=== PATIENT | male | born 1980 | race Two or more races ===

== ENCOUNTER 2024-07-27 16:47 | Emergency (ER) | payer OTHER ==
[~2024-07-27] VITALS: Ht 177.8 cm; Wt 87.8 kg
[2024-07-27 17:27] LABS: BASOPHILS 0.1 % (0-2); HEMOGLOBIN 19.5 g/dL (12.0-18.0); MCHC 34.8 g/dl (30-36)
[2024-07-27 17:30] LABS: EOSINOPHILS 1.9 % (0-6); HEMATOCRIT 55.9 % (35.0-50.0); LYMPHOCYTES 15.2 % (24-44); MCH 31.2 (27-36); MCV 89.6 fl (81-99); MONOCYTES 13.3 % (0-12); NEUTROPHILS 69.5 % (39-80); PLATELET COUNT 220 K/uL (140-440); RBC 6.24 M/ul (4.3-5.7); RDW 13.4 (10.5-15.0)
[2024-07-27] MEDS ORDERED: SODIUM CHLORIDE 0.9% 1,000 ML IV PRN (17:45)
[2024-07-27] MEDS ORDERED: ondansetron HCL 4 MG/2 ML VIAL IV ONE (17:45)
[2024-07-27 18:17] LABS: ALBUMIN 3.8 g/dL (3.4-5.0); ALBUMIN/GLOBULIN RATIO 1.09 (1.1-2.4); ANION GAP 14.6 (7-21); BILIRUBIN, TOTAL 0.9 ng/dL (0.2-1.0); BUN/CREATININE RATIO 15.44 (6.0-28.6); CREATININE, SERUM 1.23 mg/dL (0.70-1.30); MAGNESIUM 1.7 mg/dL (1.8-2.4); POTASSIUM 4.6 mmol/L (3.5-5.1); PROTEIN, TOTAL 7.3 g/dL (6.4-8.2)
[2024-07-27 18:17] LABS: INFLUENZA B NAA NEGATIVE (NEGATIVE); RESPIRATORY SYNCYTIAL VIR NAA NEGATIVE (NEGATIVE)
[2024-07-27] MEDS ORDERED: MAGNESIUM SULFATE 2 GM/50 ML BAG IV ONE (18:45)
[2024-07-27] MEDS ORDERED: LIDOCAINE & ANTACID 35 ML BTL PO ONE (19:45)
[2024-07-27] MEDS ORDERED: LACTATED RINGER'S 1,000 ML IV ONE (20:30)
[2024-07-27 20:35] LABS: AMPHETAMINES, URINE NEGATIVE (NEGATIVE); BARBITURATES, URINE NEGATIVE (NEGATIVE); BENZODIAZEPINE, URINE NEGATIVE (NEGATIVE); BUPRENORPHINE, URINE NEGATIVE (NEGATIVE); CANNABINOID, URINE NEGATIVE (NEGATIVE); COCAINE, URINE NEGATIVE (NEGATIVE); ECSTASY, URINE NEGATIVE (NEGATIVE); FENTANYL, URINE NEGATIVE (NEGATIVE); METHADONE, URINE NEGATIVE (NEGATIVE); OPIATES, URINE NEGATIVE (NEGATIVE); OXYCODONE, URINE NEGATIVE (NEGATIVE); PHENCYCLIDINE, URINE NEGATIVE (NEGATIVE)
[2024-07-27] MEDS ORDERED: ONDANSETRON ODT4 MG PO (21:34)
[2024-07-27 21:35] VITALS: BP 135/79
[2024-07-27] MEDS ORDERED: ONDANSETRON 4 MG HOME.PACK SL ONE (21:45)
--- NOTE | 2024-07-28 20:50 | EKG ---
[facility] [address] [facility] [place], [place] [address] Signed Sinus tachycardia Otherwise normal ECG No previous ECGs available Confirmed by Samanta Mcqueen MD ([id number]) on 07/28/2024 8:50:33 PM Electronically Signed By: SAMANTA MCQUEEN DO 07/28/242049 PATIENT NAME: MAXWELL GARG Electrocardiogram DATE OF : 78 PHYSICIAN: SAMANTA MCQUEEN DO REPORT #: [id number] REPORT IS CONFIDENTIAL AND NOT TO BE RELEASED WITHOUT AUTHORIZATION
== END 2024-07-27 21:48 | disposition home or self-care (01) ==
LOC: ED 16:47
PROVIDERS: Emergency Medicine
DX: R11.2 Nausea with vomiting, unspecified (principal); E83.42 Hypomagnesemia; I45.6 Pre-excitation syndrome; Q23.81 Bicuspid aortic valve; E23.0 Hypopituitarism
CPT/HCPCS: 36415; 71260; 74177; 80053; 80307; 83605; 83735; 84484; 85025; 87502; 93005; 93010; 96361; 99284-25; A9270; J2405; J3475; J7030; J7121; Q9967; U0002

== ENCOUNTER 2024-07-29 01:34 | Observation (INO) | payer OTHER ==
[~2024-07-29] VITALS: Ht 177.8 cm; Wt 89.3 kg
--- OUTSIDE RECORDS SUMMARY | ~2024-07-29 | XMS | Continuity of Care Document ---
Demographics + + + | Address | [address] | | | [place] [address] | + + + | Preferred Language | Unknown | + + + | Marital Status | | + + + | Holiness Affiliation | Unknown | + + + | Race | White | + + + | Ethnic Group | Not or | + + + Author + + + | Author | [facility] | + + + | Organization | [facility] | + + + | Address | [address] | | | [place] [address] | + + + | Phone | | + + + Care Team Providers + + + + | Care Universal Winding Machine Operator Name | Role | Phone | + + + + Unavailable | Unavailable | + + + + Unavailable | Unavailable | + + + + Allergies No information. Encounters No information. Functional Status No information. Immunizations No information. Medications No information. Problems No information. Procedures No information. Results/Labs +--------+--------+ +---------+--------+---------+ | test | date | facility | value | unit | notes | +--------+--------+ +---------+--------+---------+ + + | Result panel 1 | + + + + + + + + + | No Results | (no date) | [facility] | No Results | (missing) | (missing) | | | | [facility] | | | | | | | [facility] | | | | + + + + + + + Social History + + + + | date | description | facility | + + + + | 2024-07-06 00:00 | Ex-smoker (finding) | [facility] | + + + + Vital Signs + + +---------+ + | date | measurement | value | units | + + +---------+ + | 2024-07-04 00:00 | BP_diastolic | 82 | mmHg | + + +---------+ + | 2024-07-04 00:00 | BP_systolic | 124 | mmHg | + + +---------+ + | 2024-07-04 00:00 | heart_rate | 1|1| | completed | + + +---------+ + | 2024-07-04 00:00 | heart_rate | 72 | /min | + + +---------+ + | 2024-07-04 00:00 | o2_saturation | 99 | % | + + +---------+ + | 2024-07-04 00:00 | temperature_metric | 36.89 | C | | | | | | + + +---------+ + | 2024-07-04 00:00 | | 98.4 | F | | | temperature_standar | | | | | d | | | + + +---------+ + | 2024-07-04 00:00 | weight_metric | 89.36 | kg | + + +---------+ + | 2024-07-04 00:00 | weight_standard | 197 | lb | + + +---------+ +"
--- OUTSIDE RECORDS SUMMARY | ~2024-07-29 | XMS | Continuity of Care Document ---
Demographics + + + | Address | [address] | | | [place] [address] | + + + | Preferred Language | Unknown | + + + | Marital Status | | + + + | Jain Affiliation | Unknown | + + + | Race | White | + + + | Ethnic Group | Not or | + + + Author + + + | Author | [facility] | + + + | Organization | [facility] | + + + | Address | [address] | | | [place] [address] | + + + | Phone | | + + + Care Team Providers + + + + | Care Digital Press Operator Name | Role | Phone | [...]
--- OUTSIDE RECORDS SUMMARY | ~2024-07-29 | XMS | Continuity of Care Document ---
Demographics + + + | Address | [address] | | | [place] [address] | + + + | Preferred Language | Unknown | + + + | Marital Status | | + + + | Protestant Affiliation | Unknown | + + + | Race | White | + + + | Ethnic Group | Not or | + + + Author + + + | Author | [facility] | + + + | Organization | [facility] | + + + | Address | [address] | | | [place] [address] | + + + | Phone | | + + + Care Team Providers + + + + | Care Artist Mannequin Coloring Name | Role | Phone | + [...]
[~2024-07-29 01:34] MED LIST: ONDANSETRON ODT4 MG PO
--- OUTSIDE RECORDS SUMMARY | 2024-07-29 01:38 | XMS ---
PreManage Notification: MAXWELL GARG Security Learning Consultant Events No recent Security Events currently on file CRITERIA MET - [facility] - 2 Visits in 30 Days CARE PROVIDERS Michael Braxton Community Health Worker 07/02/2020-Current PHONE: [phone] John Ybarra DO [facility] Current PHONE: Unknown Luci has no Care Guidelines for this patient. Bhanu VISIT COUNT (12 MO.) [address] TOTAL 4 NOTE: Visits indicate total known visits. ED/UCC VISIT TRACKING (12 MO.) 07/29/2024 01:35 [facility] [place] TYPE: Emergency COMPLAINT: - FLU SYMPTOMS 07/27/2024 16:48 [facility] [place] TYPE: Emergency COMPLAINT: - FLU SYMPTOMS 10/11/2023 06:46 [facility] [place] TYPE: Emergency DIAGNOSES: - Influenza due to other identified influenza virus with other respiratory manifestations - POSSIBLE PNEUMONIA - TROUBLE BREATHING POSSIBLE PNEUMONIA 08/09/2023 11:23 [facility] [place] TYPE: Emergency DIAGNOSES: - Chest pain, unspecified - Palpitations - CHEST PAIN INPATIENT VISIT TRACKING (12 MO.) No inpatient visits to display in this time frame [email or web address]
[2024-07-29] MEDS ORDERED: FAMOTIDINE 20 MG/ 2 ML VIAL IV ONE (02:00)
[2024-07-29] MEDS ORDERED: droPERidol 5 MG/2 ML VIAL IV ONE (02:00)
[2024-07-29] MEDS ORDERED: LACTATED RINGER'S 1,000 ML IV ONE ×2 (02:15→03:45)
[2024-07-29 02:50] LABS: EOSINOPHILS 1.6 % (0-6); HEMATOCRIT 59.7 % (35.0-50.0); LYMPHOCYTES 22.1 % (24-44); MCH 30.2 (27-36); MCHC 33.5 g/dl (30-36); MCV 90.1 fl (81-99); MONOCYTES 19.5 % (0-12); NEUTROPHILS 56.8 % (39-80); PLATELET COUNT 256 K/uL (140-440); RBC 6.63 M/ul (4.3-5.7); RDW 13.5 (10.5-15.0)
[2024-07-29 03:07] LABS: ALBUMIN 3.5 g/dL (3.4-5.0); ALBUMIN/GLOBULIN RATIO 1.03 (1.1-2.4); ANION GAP 17.7 (7-21); BILIRUBIN, TOTAL 0.7 ng/dL (0.2-1.0); BUN/CREATININE RATIO 13.88 (6.0-28.6); CALCIUM 8.9 mg/dL (8.5-10.1); CREATININE, SERUM 1.44 mg/dL (0.70-1.30); POTASSIUM 3.7 mmol/L (3.5-5.1); PROTEIN, TOTAL 6.9 g/dL (6.4-8.2)
[2024-07-29] MEDS ORDERED: HYDROCORTISONE SOD SUCCINATE 100 MG/2 ML VIAL IV ONE (03:15)
[2024-07-29] MEDS ORDERED: LACTATED RINGER'S 1,000 ML IV SCH ×2 (03:45→22:15)
[2024-07-29] MEDS ORDERED: ondansetron HCL 4 MG/2 ML VIAL IV PRN ×2 (03:45→22:15)
[2024-07-29] MEDS ORDERED: GENOTROPIN0.6 MG/0.2 SUB-Q (04:37)
[2024-07-29 04:53] VITALS: BP 114/83
--- NOTE | 2024-07-29 05:12 | NUR ---
PATIENT ARRIVED TO UNIT AT 0425 VIA GURNEY. AMBULATED FROM [facility] IN THE LAST TO BED INDEPENDENTLY. AO X4. OREINTED TO ROOM AND CALL LIGHT FUNCTIONS. PATIENT SAFETY REVIEWED, NON-SKID SOCKS PROVIDED. PATIENT ABMULATED WITHOUT DIFFICULTY TO BR AND HAD AN EPISODE OF DIARRHEA. HR INCREASED TO 140S WITH ACTIVITY BUT DECREASED DOWN TO LOW 100S AT REST, SINUS RHYTHM. PLAN OF CARE REVIEWED, PATIENT DENIES QUESTIONS. PATIENT DENIES PAIN AT THIS TIME BUT DOES ENDORSE NEAUSEA. MEDICATED WITH ZOFRAN PER EMAR. ICE WATER PROVIDED BUT INSTRUCTED TO GO SLOW. IVF INFUSING WITHOUT DIFFICULTY. CALL LIGHT IN REACH. PATIENT VERBALIZED UNDERSTANDING TO CALL IF HE FEELS LIGHTHEADED, DIZZY OR NEEDS ASSISTANCE.
--- NOTE | 2024-07-29 05:28 | NUR ---
PATIENT REPORTS IMPROVEMENT IN NAUSEA SO FAR AFTER ZOFRAN. PATIENT REPORTS BEING "VERY TIRED" AND WISHES TO REST AT THIS TIME.
[2024-07-29 06:08] LABS: ANION GAP 12.2 (7-21); BUN/CREATININE RATIO 14.91 (6.0-28.6); CALCIUM 8.3 mg/dL (8.5-10.1); CREATININE, SERUM 1.14 mg/dL (0.70-1.30); POTASSIUM 4.2 mmol/L (3.5-5.1)
--- NOTE | 2024-07-29 06:22 | NUR ---
UP TO BR TO HAVE BOWEL MOVEMENT. PATIENT COMPLAINS OF ABDOMINAL PAIN. REVIEWED WITH DR. MCQUEEN WELL MAGNESIUM LEVEL. ORDERS RECEIVED FOR DICYCLOMINE 20 MG QID PRN AND MAGNESIUM 2MG IV.
[2024-07-29] MEDS ORDERED: DICYCLOMINE HCL 10 MG CAP PO PRN (06:30)
[2024-07-29] MEDS ORDERED: MAGNESIUM SULFATE 2 GM/50 ML BAG IV ONE (06:30)
--- NOTE | 2024-07-29 06:35 | NUR ---
MAGNESIUM INFUSING PER ORDER. DICLOMINE ADMINISTERED PER EMAR. PATIENT RESTING IN BED AT THIS TIME.
--- NOTE | 2024-07-29 07:30 | NUR ---
REPORT FROM STRATEGIC ALLIANCES MANAGER, RN IN ROOM TO SEE PT, CALL LIGHT IN REACH - PT AWAKE AND C/O ABD PAIN. IV LR AT 200, MG REPLACEMENT FINISHED - DISCUSSED LABS WITH PROFILER HAND SARAH.
[2024-07-29 08:00] VITALS: BP 115/77
[2024-07-29] MEDS ORDERED: HYDROCORTISONE SOD SUCCINATE 100 MG/2 ML VIAL IV SCH (09:00)
--- NOTE | 2024-07-29 09:02 | NUR ---
PT UP TO VOID AND BM X2 WITH DIMAS BLOOD IN TOILET - LIQ BM. DR IN ROOM, PT ALERT AND ORIENTED. REPORTS 10 DAYS OF SYMPTOMS - N/V/D
[2024-07-29] MEDS ORDERED: FAMOTIDINE 20 MG TAB PO SCH ×3 (09:10→09:17)
[2024-07-29] MEDS ORDERED: PANTOPRAZOLE SODIUM 40 MG TABEC PO SCH (09:27)
--- NOTE | 2024-07-29 10:06 | NUR ---
medical history from pt has current providers and records requested: Dr. Adenike Porter MD [facility] Hepatology and Gastroenterology Dr. Ybarra [facility] - [facility] endoscopy Dr. Hudson Stokes MD - [place] Floral Designer Salesperson.
[2024-07-29] MEDS ORDERED: levoFLOXacin 500 MG TAB PO SCH (10:15)
[2024-07-29] MEDS ORDERED: PANTOPRAZOLE SODIUM 40 MG/10 ML VIAL ONE (10:26)
[2024-07-29] MEDS ORDERED: HYDROmorphone HCL 1 MG/ML SYR IV PRN (10:30)
[2024-07-29] MEDS ORDERED: IBUPROFEN 400 MG TAB PO PRN (10:30)
[2024-07-29] MEDS ORDERED: PROCHLORPERAZINE EDISYLATE 10 MG/2 ML VIAL IV PRN (10:30)
--- NOTE | 2024-07-29 10:37 | NUR ---
PT HAD LARGE EMISIS WITH ABD PAIN, AFTER THROWING UP, ABD PAIN RELIVED. ABLE TO TAKE PO LEVAQUIN, AND IV PPI GIVEN. PT UP AGAIN TO BATHROOM TO VOID AND HAVE LOOSE BM. DECLINES PAIN MED AND NAUSEA MED AT THIS TIME.
--- NOTE | 2024-07-29 10:58 | NUR ---
records recived from [facility] - endoscopy upper 11/08/21 1. nonulcer dyspepsia, 2. gastroesophageal reflux disease with out esophagitis. 3. dyspepsia/ epigastric pain, 4. Mood disorder, etc.
--- NOTE | 2024-07-29 12:47 | NUR ---
prn bentyl given for abd cramping that gets better with evacuation. pt up to bathroom for liq. bm - appears # 6/7 on bristol stool chart, clear to flecks of stool with pink tinged color in water. pt hr increases with activity - pt worried that he has paracite? asks about Ivermectin. Stool apears to be wnl and similar to stool from inflammed bowel. Talk about bowel rest and cl liq. diet. pt resting and denies needs, friend in room.
--- NOTE | 2024-07-29 13:05 | NUR ---
printed education to pt on nausea, vomiting, loose stool, and gastroenteritis. pt reports he is lactose intollerant - discussion on po probiotic not from dairy products- pt comfortable at this time resting in bed.
--- NOTE | 2024-07-29 14:47 | NUR ---
pt enc. to go easy on oral intake of clear liq. sips and chips. Admits to feeling nauseated when he increases to broth or big drinks of water. family in room, prn compazine given by rn -
--- NOTE | 2024-07-29 15:01 | NUR ---
PT NOT AVAILABLE FOR VISIT. PROVIDED PRAYER.
[2024-07-29 16:16] VITALS: BP 107/69
--- NOTE | 2024-07-29 16:20 | NUR ---
PT SIGNIFICANT OTHER BROUGHT IN HIS HOME MEDS X3 INJ DOSES. TAKES DAILY AT NIGHT. CHECKED IN BY PHARMACY AND VERIFIED THAT IT IS OK TO BE LEFT AT ROOM TEMP FOR 30 DAYS PLUS. COMFORTABLE AT THIS TIME, WATCHING TV WITH FAMILY.
--- NOTE | 2024-07-29 16:45 | NUR ---
medications reconciled with patient
--- NOTE | 2024-07-29 16:46 | NUR ---
he will be using his own somatropin 0.6mg sub-q injection. please assure that it is returned to him prior to discharge
--- NOTE | 2024-07-29 18:36 | NUR ---
pt resting in room with girlfriend, reports slowing down on trips to the bathroom, and he is able to drink broth at dinner - reports feeling ok at this time, declines bentyl at this time - knows it is available if needed. pt is re assured by feeling better, call light in reach and iv fusing - site r arm wnl.
--- NOTE | 2024-07-29 20:01 | NUR ---
PATIENT RESTING IN BED WITH SIGNIFICANT OTHER. HE REPORTS HE FEELS SO MUCH BETTER TODAY, NO PAIN AND NO NAUSEA AT THIS TIME. HE HAS NO OTHER REQUEST AT THIS TIME.
[2024-07-29] MEDS ORDERED: SOMATROPIN SUB-Q SCH (21:00)
[2024-07-29] MEDS ORDERED: PANTOPRAZOLE SODIUM 40 MG/10 ML VIAL IV SCH (21:00)
--- NOTE | 2024-07-29 21:15 | NUR ---
PATIENT ALERT TO RN AT BEDSIDE, PATIENT ADMINISTERED HIS HOME MEDICATION SUBQ, HE REPORTS NO ABD PAIN OR NAUSEA AT THIS TIME. HIS ONLY REQUEST IS MORE ICE WATER, PILLOWS AND BLANKETS PROVIDED TO PATIENT FAMILY IN ROOM.
[2024-07-29 21:32] VITALS: BP 107/65
[2024-07-29 21:54] VITALS: BP 107/65
--- NOTE | 2024-07-29 23:05 | NUR ---
PATIENT RESTING QUIETLY IN BED, RESPIRATORY RATE 16/MIN, NO DISTRESS NOTED WHILE ROUNDING, PATIENT'S FAMILY SLEEPING IN ROOM IN RECLINER AND COUCH.
--- NOTE | 2024-07-30 01:11 | NUR ---
PATIENT CALLED DUE TO IV PUMP ALARMING, THIS RN INTO PATIENT ROOM WITH NEW LITER BAG OF LR TO HANG FOR INFUSION, PATIENT ASKED WHEN HIS DIET MIGHT GET INCREASED, DISCUSSED WITH PATIENT THAT IF HE TOLERATES CLEAR LIQUID DIET THAN POSSIBLY IN THE AM WHEN ROUNDS. THIS RN GAVE OPTIONS THAT ARE AVAILABLE FOR CLEAR LIQUID DIET, SUCH BEEF, CHICKEN AND VEG. BROTH, WELL JELLO AND CLEAR ENSURES, HE ASKED FOR VEG. BROTH, JELLO AND CLEAR ENSURE. ALL PROVIDED DISCUSSED WITH PATIENT TO CONSUME ITEMS SLOWLY, TO PREVENT NAUSEA. HE SAID, "YES, I WILL" NO FURTHER REQUESTS AT THIS TIME.
[2024-07-30 04:23] VITALS: BP 100/61
[2024-07-30 04:25] VITALS: BP 100/61
--- NOTE | 2024-07-30 04:29 | NUR ---
ROUNDED ON PATIENT AM ASSESSMENT COMPLETE, HE REPORTS NO NAUSEA OR EMESIS AFTER CONSUMING JELLO, VEG. BROTH AND CLEAR ENSURE. NO NEW CONCERNS
[2024-07-30 07:57] VITALS: BP 114/71
[2024-07-30 08:44] VITALS: BP 74/31
--- NOTE | 2024-07-30 08:59 | NUR ---
PATIENT AWAKE UPON INITIAL ASSESSMENT. PT STATES HE IS FEELING BETTER OVERALL, AND HASN'T HAD ANY EMESIS SINCE YESTERDAY MORNING, BUT IS STILL HAVING DIARRHEA. URINE IS CONCENTRATED AND 200 ML IN URINAL THIS AM. HR IN THE 80-90s. PT ASKING ABOUT TRYING SOME MORE FOOD TODAY. ADVANCED DIET TO CASSY. LABS ORDERED AND ARE PENDING. IVF CONTINUE AT 200 ML/HR. PT DENIES PAIN OR NAUSEA AT THIS TIME. PT WILL LIKELY MOVE TO MED/SURG TODAY WHEN ROOM AVAILABLE. CULTURES PENDING ON STOOL SAMPLES. WILL CONTINUE TO MONITOR.
[2024-07-30] MEDS ORDERED: SOMATROPIN SUB-Q SCH (09:00)
[2024-07-30 09:04] LABS: HEMATOCRIT 42.6 % (35.0-50.0); HEMOGLOBIN 14.3 g/dL (12.0-18.0); MCH 30.4 (27-36); MCHC 33.5 g/dl (30-36); MCV 90.9 fl (81-99); PLATELET COUNT 168 K/uL (140-440); RBC 4.69 M/ul (4.3-5.7); RDW 13.4 (10.5-15.0)
[2024-07-30 09:12] LABS: ANION GAP 5.4 (7-21); BUN/CREATININE RATIO 11.6 (6.0-28.6); CALCIUM 7.7 mg/dL (8.5-10.1); CREATININE, SERUM 1.12 mg/dL (0.70-1.30); MAGNESIUM 1.8 mg/dL (1.8-2.4); POTASSIUM 3.4 mmol/L (3.5-5.1)
[2024-07-30 09:32] LABS: BANDS, MANUAL DIFF 20; EOSINOPHILS, MANUAL DIFF 1; LYMPHOCYTES, MANUAL DIFF 48; MONOCYTES, MANUAL DIFF 9; NEUTROPHILS, MANUAL DIFF 22
[2024-07-30] MEDS ORDERED: POTASSIUM CHLORIDE 40 MEQ,LIDOCAINE HCL 1% 40 MG in DEXTROSE 5% 250 ML IV ONE (10:00)
--- NOTE | 2024-07-30 10:05 | NUR ---
PATIENT TOLERATED HIS OATMEAL WELL AND HAS REPORTED NO NAUSEA. PT STILL HAVING SOME DIARRHEA THOUGH. IV POTASSIUM TO BE GIVEN.
--- NOTE | 2024-07-30 10:33 | NUR ---
DR. MCQUEEN IN TO SEE PATIENT AND PLAN OF CARE BEING DISCUSSED. PT DID JUST HAVE ANOTHER LIQUID BM. PT DID TOLERATE HIS OATMEAL OKAY THIS AM.
--- NOTE | 2024-07-30 11:45 | NUR ---
Spoke with pt briefly. He states he has already spoken with CM. He denies any needs. Plans on dc to home with family.
--- NOTE | 2024-07-30 12:00 | NUR ---
PATIENT SITTING UP EATING LUNCH AT THIS TIME AND TOLERATING WELL. PT HAS SHOWERED AND IS READY TO D/C HOME ONCE HIS IV POTASSIUM IS DONE. PT'S ARM WAS HURTING WHEN THE POTASSIUM WAS RUNNING BY ITSELF, AND NOW THE LR IS RUNNING AT 75 ML/HR WITH POTASSIUM Y SITED INTO IT. THIS HAS RELIEVED THE PATIENT FROM FEELING THE ACHE THE POTASSIUM WAS CAUSING. IV SITE IS NOT RED NOR PUFFY. D/C PAPERWORK BEING PREPPED.
[2024-07-30] MEDS ORDERED: LEVOFLOXACIN500 MG PO (12:03)
[2024-07-30] MEDS ORDERED: DICYCLOMINE HCL20 MG PO (12:04)
[2024-07-30] MEDS ORDERED: ONDANSETRON ODT8 MG PO (12:05)
[2024-07-30 14:20] VITALS: BP 117/67
--- NOTE | 2024-07-30 15:47 | NUR ---
PATIENT'S POTASSIUM INFUSION COMPLETED AND PT WAS ABLE TO D/C HOME. IV SITE D/C OUT OF RIGHT AC, TIP INTACT, AND NO REDNESS NOTED. PT VERY APPRECIATIVE OF ALL INTERVENTIONS AND STAFF. W/C RIDE PROVIDED AND PATIENT ABLE TO DRIVE SELF HOME. D/C PAPERWORK GIVEN. HIS PCP WILL BE CALLING TO SCHEDULE HIS F/U APPT.
== END 2024-07-30 15:23 | disposition home or self-care (01) ==
LOC: ED 01:34 → CCU 01:36 → ED 01:36 → CCU 07-30 15:23
PROVIDERS: Internal Medicine; ADMIT Student in an Organized Health Care Education/Training Program; ATTEND Student in an Organized Health Care Education/Training Program
DX: A09 Infectious gastroenteritis and colitis, unspecified (principal); E23.0 Hypopituitarism; E89.0 Postprocedural hypothyroidism; Z79.899 Other long term (current) drug therapy; N17.9 Acute kidney failure, unspecified; I45.6 Pre-excitation syndrome
CPT/HCPCS: 36415; 80048; 80053; 82553; 83605; 83690; 83735; 84439; 84443; 85025; 85060; 87045; 87046; 96361; 96365; 96366; 96372; 96374; 96375; 96376; 99284-25; G0378; J0780; J1720; J1790; J2405; J2470; J3475; J3480; J3490; J7060; J7121